=== PATIENT | female | born 1990 | race African-American/Black ===

== ENCOUNTER 2022-07-04 14:08 | Emergency (ER) | payer MEDICAID ==
[~2022-07-04] VITALS: Ht 167.6 cm; Wt 90.0 kg
[2022-07-04] MEDS ORDERED: IBUPROFEN 600MG TABLET PO ONE (14:45)
[2022-07-04 17:29] VITALS: BP 125/70
[2022-07-04] MEDS ORDERED: IBUPROFEN 600MG TABLET PO NR (17:30)
== END 2022-07-04 18:05 | disposition home or self-care (01) ==
LOC: ER 15:25
DX: S60.032A Contusion of left middle finger without damage to nail, initial encounter (principal); X58.XXXA Exposure to other specified factors, initial encounter; Y93.89 Activity, other specified; Y92.89 Other specified places as the place of occurrence of the external cause; Y99.8 Other external cause status
CPT/HCPCS: 29130; 73130; 99283